=== PATIENT | female | born 1940 | race Caucasian/White ===

== ENCOUNTER 2017-10-24 05:00 | Inpatient (IN) ==
[2017-10-20 18:29] LABS: Appearance,Urine CLEAR; Bacteria,Urine 0 /hpf (0); Bilirubin,Urine NEG (NEG); Calcium Oxalate Crystals,Urine FEW /hpf (0); Color,Urine YELLOW; Glucose,Urine (UA) NEGATIVE (NEG); Leukocyte Esterase,Urine 75 /uL (NEG); Mucus,Urine FEW /hpf (0); Nitrate,Urine NEG (NEG); Protein,Urine NEG (NEG); Specific Gravity,Urine 1.012 (1.000-1.035); Urine Blood NEG mg/dL (<0.03); Urine RBC 0 /hpf (0-1); Urine Squamous Epithelial Cell 1 /hpf (0-4); Urine WBC > 182 /hpf (0-4); Urobilinogen,Urine NEG (NEG)
[2017-10-20 19:05] LABS: Basophils # (Auto) 0 K/mcL (0.0-0.3); Basophils % (Auto) 0.5 % (0.0-2.0); Eosinophils # (Auto) 0.4 K/mcL (0.0-0.7); Eosinophils % (Auto) 4.5 % (0.0-7.0); Granulocytes % (Auto) 54.4 % (38.0-78.0); Lymphocytes # (Auto) 3.4 K/mcL (1.5-4.8); Lymphocytes % (Auto) 35.8 % (15.5-49.0); Mean Cell Volume 92.9 fL (80.0-100.0); Mean Corpuscular HGB Conc 32.6 g/dL (31.0-36.0); Mean Corpuscular Hemoglobin 30.3 pg (26.0-34.0); Monocytes # (Auto) 0.5 K/mcL (0.1-0.9); Monocytes % (Auto) 4.8 % (1.0-12.0); Platelet Count 241 K/mcL (140-440); RBC 4.34 M/mcL (4.00-5.20); Red Cell Distribution Width 14.1 % (11.5-14.5)
[2017-10-20 19:11] LABS: Blood Urea Nitrogen 16 mg/dl (8-23)
[~2017-10-24 05:00] MED LIST: 0.9 % SODIUM CHLORIDE 250 ML IV SCH; CELECOXIB 200 MG CAPSULE PO SCH; PREGABALIN 75 MG CAPSULE PO SCH; TRANEXAMIC ACID 1,000 MG/10 ML VIAL IV ONE
[2017-10-24] MEDS ORDERED: ceFAZolin 1 GM VIAL IV SCH (06:00)
[2017-10-24] MEDS ORDERED: oxyCODONE 10 MG TAB.ER.12H PO SCH (06:00)
[2017-10-24 06:30] LABS: Appearance,Urine CLEAR; Bilirubin,Urine NEG (NEG); Color,Urine YELLOW; Glucose,Urine (UA) NEGATIVE (NEG); Leukocyte Esterase,Urine NEG /uL (NEG); Nitrate,Urine NEG (NEG); Protein,Urine NEG (NEG); Specific Gravity,Urine 1.015 (1.000-1.035); Urine Blood NEG mg/dL (<0.03); Urobilinogen,Urine NEG (NEG)
[2017-10-24] MEDS ORDERED: DEXAMETHASONE 10 MG/ML VIAL IV ONE (07:45)
[2017-10-24] MEDS ORDERED: PROPOFOL 200 MG/20 ML VIAL IV ONE (07:45)
[2017-10-24] MEDS ORDERED: TRANEXAMIC ACID 1,000 MG/10 ML VIAL IV ONE ×2 (07:45→08:58)
[2017-10-24] MEDS ORDERED: LIDOCAINE HCL/PF 100 MG/5 ML SYRINGE IV ONE (07:45)
[2017-10-24] MEDS ORDERED: MIDAZOLAM 2 MG/2 ML VIAL IV ONE (07:45)
[2017-10-24] MEDS ORDERED: ONDANSETRON 4 MG/2 ML VIAL IV ONE (07:45)
[2017-10-24] MEDS ORDERED: GENTAMICIN SULFATE 800 MG/20 ML VIAL IR ONE (08:09)
[2017-10-24] MEDS ORDERED: MEPERIDINE 50 MG/ML SYRINGE IM PRN (08:31)
[2017-10-24] MEDS ORDERED: ONDANSETRON 4 MG/2 ML VIAL IV PRN ×2 (08:31→08:58)
[2017-10-24] MEDS ORDERED: LACTATED RINGERS 250 ML IV PRN (08:31)
[2017-10-24] MEDS ORDERED: PROMETHAZINE 25 MG/ML VIAL IV PRN (08:31)
[2017-10-24] MEDS ORDERED: PROMETHAZINE 25 MG/ML VIAL IM PRN (08:31)
[2017-10-24] MEDS ORDERED: NALOXONE HCL 0.4 MG/ML VIAL IV PRN (08:31)
[2017-10-24] MEDS ORDERED: HYDROmorphone 2 MG/ML SYRINGE IV PRN ×2 (08:31→08:58)
[2017-10-24] MEDS ORDERED: FLUMAZENIL 0.1 MG/ML ML IV PRN (08:31)
[2017-10-24] MEDS ORDERED: IPRATROPIUM/ALBUTEROL 3 ML AMPUL.NEB NEB PRN (08:31)
[2017-10-24] MEDS ORDERED: fentaNYL 100 MCG/2 ML VIAL IV PRN (08:31)
[2017-10-24] MEDS ORDERED: ACETAMINOPHEN 1,000 MG/100 ML BOTTLE IV ONE (08:31)
[2017-10-24] MEDS ORDERED: ePHEDrine 50 MG/ML AMPUL IV PRN (08:31)
[2017-10-24] MEDS ORDERED: BENZOCAINE/MENTHOL 1 LOZENGE PO PRN ×2 (08:31→08:58)
[2017-10-24] MEDS ORDERED: diphenhydrAMINE 50 MG/ML VIAL IV PRN (08:31)
[2017-10-24] MEDS ORDERED: MEPERIDINE 25 MG/ML SYRINGE IV PRN (08:31)
[2017-10-24] MEDS ORDERED: METHOCARBAMOL 1,000 MG/10 ML VIAL IV PRN (08:31)
[2017-10-24] MEDS ORDERED: LACTATED RINGERS 1,000 ML IV SCH (08:45)
[2017-10-24] MEDS ORDERED: ONDANSETRON ODT 4 MG TABLET SL PRN (08:58)
[2017-10-24] MEDS ORDERED: MAGNESIUM HYDROXIDE 30 ML ORAL.SUSP PO PRN (08:58)
[2017-10-24] MEDS ORDERED: POLYETHYLENE GLYCOL 3350 17 GM PACKET PO PRN (08:58)
[2017-10-24] MEDS ORDERED: BISACODYL 10 MG SUPP.RECT PR PRN (08:58)
[2017-10-24] MEDS ORDERED: METHOCARBAMOL 750 MG TABLET PO PRN (08:58)
[2017-10-24] MEDS ORDERED: FLEETS ADULT ENEMA PR PRN (08:58)
[2017-10-24] MEDS ORDERED: HYDROcodone/APAP 10/325MG TABLET PO PRN (08:58)
--- NOTE | 2017-10-24 08:58 | Brief Operative Note ---
Date of procedure: 10/24/17 Pre-op diagnosis: left hip oa Post-op diagnosis: same Procedure: left total hip arthroplasty Grafts/Implants: Yes Anesthesia: spinal Complications: none Surgeon: Fito Mcgee Digital Asset Specialist: Anne Siu Estimated blood loss (cc): 150 Specimens Removed/Pathology: none sent Condition: stable Disposition: PACU
[2017-10-24] MEDS: 0.9 % SODIUM CHLORIDE 1,000 ML IV SCH ×2 (09:17→17:49)
--- NOTE | 2017-10-24 09:42 | Operative Note ---
DATE OF OPERATION: 10/24/2017 PREOPERATIVE DIAGNOSIS: Degenerative joint disease, left hip. POSTOPERATIVE DIGNOSIS: Degenerative joint disease, left hip. PROCEDURE: Left total hip arthroplasty. SURGEON: Sommer Mcgee M.D. SYBASE DEVELOPER SURGEON: Anne Siu PA-C. ANESTHESIA: Spinal with LMA assist. ESTIMATED BLOOD LOSS: 150 mL. COMPLICATIONS: None noted. SPECIMENS REMOVED: None. DRAINS: None. IMPLANTS: [place] Gription acetabular shell, 52 mm; DePuy Adrian Hole Eliminator PS; DePuy [place] Altrx polyethylene acetabular liner, neutral 36 x 52; DePuy Tri-Lock BPS femoral stem with Gription, size 6 high offset; DePuy Biolox delta ceramic femoral head, +1.5, 36 mm diameter. INDICATIONS: The patient has had a longstanding history of worsening pain in the hip that has failed conservative treatment. Radiographs have confirmed advanced degenerative joint disease. After a long discussion about treatment options, the patient elected to proceed with a hip arthroplasty. The risks and benefits were discussed with the patient in detail including, but not limited to, the risks of anesthesia, problems with the heart or lungs related to anesthesia, infection, compromise or injury to the nerves and blood vessels, deep venous thrombosis, pulmonary embolism, pneumonia, continued pain after surgery, worsening pain or symptoms after surgery, swelling, loss of motion, instability, leg length discrepancy, and need for repeat surgery. DESCRIPTION OF PROCEDURE: The patient was seen in pre-anesthesia waiting room where all questions were answered and the correct side and site were identified and marked. The patient was then brought to the operating room and administered the anesthetic and given pre-operative antibiotics. A time-out was then called. The patient was placed in the lateral decubitus position with all prominences well padded using the Yobani frame and the extremity was prepped and draped in the usual sterile fashion. Anesthesia gave the patient 1 gm of tranexamic acid via an intravenous route. A standard posterior approach was made. We dissected through the skin and subcutaneous tissue to the deep fascia. The deep fascia was split in line with the incision and a Charnley retractor was placed. We exposed, tagged, and incised the short external rotators and piriformis tendon and retracted them posteriorly to help protect the sciatic nerve which was palpated throughout the case. We then performed a T-capsulotomy and tagged the capsule edges. Prior to dislocating the hip, we set a length and offset gauge from a Steinmann pin in the iliac wing to a jacob on the greater trochanter. The hip was then dislocated and a femoral neck osteotomy was performed to the pre-surgical templated level off the lesser trochanter. The head was removed and sized. We next turned our attention to the acetabulum. Retractors were placed for optimal visualization. A complete labral excision was performed. The capsule was preserved for later closure. We began reaming using anatomic landmarks with the DePuy [place] acetabular system. We medialized the cup and reamed up to provide good fill and coverage of the trial. When the trial was stable and appropriately positioned with approximately 20 degrees of anteversion and 45 degrees of abduction, we impacted the DePuy [place] cup and placed a cancellous screw in the posterior-superior quadrant. Osteophytes were removed from around the shell. We placed the trial liner and turned our attention to the femur. We placed retractors for visualization, internally rotated the femur, and established intramedullary access. We broached using the DePuy Tri-Lock stem to a stable platform medial, lateral, and rotationally with the appropriate version. We then performed a calcar reaming off the broach. Trials were then placed and optimized for leg length and stability. We used the leg length and offset guide to confirm our trials. Best stability, length, and offset characteristics were obtained with these sizes. We removed all trials and impacted the polyethylene acetabular liner in a standard fashion after a thorough irrigation. We then impacted the femoral stem to its broached location and placed the head. Final reduction was performed. Again, good stability, leg length, and offset characteristics were noted. We irrigated with three liters of antibiotic saline. We closed the capsule with #2 FiberWire. We closed the fascia with a combination of looped #0 Maxon and #0 Vicryl. We closed the subcutaneous tissue and skin in layers out to carmelita in the skin. A sterile pressure dressing and abduction wedge was applied. All needle and sponge counts were correct. The patient was transferred to the recovery room in stable condition. Joann Job ID: [id number] Doc ID: [id number] Sommer Mcgee MD
--- NOTE | 2017-10-24 10:16 | XRay Report ---
HISTORY: Reason for Exam:Post-Op Total Hip FINDINGS: There is a well-positioned left total hip prosthesis. No acute fracture is present. There is an old fracture of the right superior and inferior pubic rami. Mild arthritis is present in the right hip. IMPRESSION: Well-positioned left hip prosthesis Interpreted and Authenticated by: Brandon Jolley 10/24/17
[2017-10-24] MEDS: DOCUSATE SODIUM 100 MG CAPSULE PO SCH ×2 (10:18→21:18)
[2017-10-24] MEDS: ASPIRIN 325 MG ENTERIC COATED TABLET PO SCH ×2 (10:19→21:18)
[2017-10-24] MEDS: 0.9 % SODIUM CHLORIDE 10 ML SYRINGE IV SCH ×2 (14:50→21:19)
[2017-10-24] MEDS: traMADol 50 MG TABLET PO PRN ×2 (14:50→21:19)
[2017-10-24] MEDS: KETOROLAC 15 MG/ML VIAL IV PRN (14:50)
[2017-10-24] MEDS: ceFAZolin 1 GM VIAL IV SCH ×2 (15:34→23:58)
[2017-10-24] MEDS ORDERED: SENNOSIDES 1 TABLET PO SCH (21:00)
[2017-10-24] MEDS: busPIRone 5 MG TABLET PO SCH (21:19)
[2017-10-25] MEDS: KETOROLAC 15 MG/ML VIAL IV PRN (00:02)
[2017-10-25] MEDS: busPIRone 5 MG TABLET PO SCH ×2 (00:15→08:29)
[2017-10-25] MEDS: 0.9 % SODIUM CHLORIDE 1,000 ML IV SCH ×2 (01:02→08:29)
[2017-10-25] MEDS: 0.9 % SODIUM CHLORIDE 10 ML SYRINGE IV SCH ×2 (04:59→13:19)
--- NOTE | 2017-10-25 07:23 | Orthopedic Progress Note ---
Subjective Patient information: Note initiated : 10/25/17 at 7:21 am Service Date, if different from initiated Date: [] Patient: Cristela Cardenas 77 y/o F admitted on 10/24/17 for Left Total Hip Athroplasty. Chief Complaint: [] Interval history: doing well. pain under control Objective Vital signs: Vital Signs Temp Pulse Pulse Resp BP BP BP 10/25/17 04:00 97.9 F 75 24 H 139/70 10/25/17 00:00 98.0 F 70 24 H 126/63 10/24/17 20:00 98.1 F 67 24 H 118/57 10/24/17 17:17 98.4 F 14 147/86 10/24/17 09:56 98.4 F 83 13 104/60 10/24/17 09:45 84 13 106/62 10/24/17 09:35 83 12 107/61 10/24/17 09:25 80 13 89/53 10/24/17 09:10 96.8 F L 87 12 105/61 Pulse Ox 10/25/17 04:00 97 10/25/17 00:00 94 10/24/17 20:00 95 10/24/17 17:17 97 10/24/17 09:56 99 10/24/17 09:45 98 10/24/17 09:35 100 10/24/17 09:25 100 10/24/17 09:10 100 Intake and Output 10/24/17 10/25/17 10/25/17 21:59 05:59 13:59 Intake Total 1750 / 1750 1250 / 1250 Output Total 1150 / 1150 1100 / 1100 Balance 600 / 600 150 / 150 Intake: Oral 1750 / 1750 1250 / 1250 Output: Void Amount 1150 / 1150 1100 / 1100 Other: Meal Dinner Percent of Meal Consumed 100% Feeding Ability Independent # Voids 1 1 Weight 134 lb 14.4 oz Intake & Output: Intake & Output 10/24/17 10/25/17 10/25/17 21:59 05:59 13:59 Intake Total 1750 / 1750 1250 / 1250 Output Total 1150 / 1150 1100 / 1100 Balance 600 / 600 150 / 150 Weight 134 lb 14.4 oz Intake: Oral 1750 / 1750 1250 / 1250 Output: Void Amount 1150 / 1150 1100 / 1100 Other: Meal Dinner Percent of Meal Consumed 100% Feeding Ability Independent # Voids 1 1 Incision: Yes healing Incision clean and dry: Yes Dressing: Yes clean, Yes dry, Yes intact Weight bearing status: full Neurological exam IM: Yes alert, Yes normal gait, Yes oriented X3, Yes motor sensory intact, Yes neurovascular intact Extremities exam IM: No calf tenderness, Yes Foot pink and warm, Yes neurovascular intact - Labs CBC & BMP: 10/25/17 05:03 10/20/17 16:26 Labs: Orthopedic Labs 10/20/17 16:26 PT 12.6 INR 0.9 10/25/17 10/20/17 05:03 16:27 Hgb 11.4 L 13.1 Hct 33.7 L 40.3 Assessment and Plan (1) Hip osteoarthritis pod 1 s/p yao wbat pain control dvt prophylaxis d/c planning Status: Acute
--- NOTE | 2017-10-25 07:23 | Discharge Summary ---
Ortho Discharge - [facility] - Patient Instructions Diet: Regular Diet Activity: ambulate with assistive device, weight bearing as tolerated Total Hip Protocol: Follow activity instructions as provided by Physical Therapy. Dressing Care: May shower in 2 days - Problem Maintenance (1) Hip osteoarthritis Status: Acute - Follow Up Plan Disposition: Home, Self-Care Prognosis: Good Rehab Potential: Good I certify that the patient requires SNF services: No Overall status at discharge: patient is progressing back to baseline
[2017-10-25] MEDS: DOCUSATE SODIUM 100 MG CAPSULE PO SCH (08:29)
[2017-10-25] MEDS: ASPIRIN 325 MG ENTERIC COATED TABLET PO SCH (08:29)
[2017-10-25] MEDS ORDERED: amLODIPine 5 MG TABLET PO SCH (09:00)
[2017-10-25] MEDS ORDERED: MULTIVIT,THER IRON,CA,FA & MIN 1 TABLET PO SCH (09:00)
[2017-10-25] MEDS: traMADol 50 MG TABLET PO PRN ×2 (09:55→14:47)
[2017-10-25] MEDS ORDERED: PNEUMOCOCCAL 23-VAL P-SAC VAC 0.5 ML VIAL IM ONE (10:00)
== END 2017-10-25 16:40 | disposition home or self-care (01) | DRG 470 ==
LOC: MEDSUR 05:00
PROVIDERS: ADMIT Orthopaedic Surgery Sports Medicine; ATTEND Orthopaedic Surgery Sports Medicine